=== PATIENT | female | born 1980 | race African-American/Black ===

== ENCOUNTER 2017-06-07 18:36 | Emergency (ER) | payer OTHER ==
[~2017-06-07] VITALS: Ht 172.7 cm; Wt 82.0 kg
[2017-06-07] MEDS ORDERED: IBUPROFEN 600MG TABLET PO ONE (19:30)
[2017-06-07 20:11] VITALS: BP 122/84
== END 2017-06-07 20:35 | disposition home or self-care (01) ==
LOC: ER 18:47
DX: S09.90XA Unspecified injury of head, initial encounter (principal); V43.52XA Car driver injured in collision with other type car in traffic accident, initial encounter; Y93.89 Activity, other specified; Y92.89 Other specified places as the place of occurrence of the external cause; Y99.8 Other external cause status
CPT/HCPCS: 81025; 99283